=== PATIENT | male | born 1970 | race Caucasian/White ===

== ENCOUNTER 2017-02-28 17:57 | Emergency (ER) | payer SELFPAY ==
[~2017-02-28] VITALS: Ht 162.6 cm; Wt 70.0 kg
[2017-02-28 18:07] VITALS: Ht 162.6 cm; Wt 70.0 kg
--- NOTE | 2017-02-28 18:49 | ERD ---
ER Documentation Chief Complaint Date/Time DATE: 02/28/17 TIME: 18:46 Chief Complaint "ate someting 30 minutes ago, face is swollen" no airway comprimise HPI 46-year-old male presents in emergency department for complaints of itching and facial swelling today after eating Jell-O. Patient was at a [employer], ate Jell-O, started to have itching afterwards. Patient does not have any lip swelling, tongue swelling or stridor. Patient does not have any shortness breath or wheezing. Patient did not take any medications to help with symptoms. ROS All systems reviewed and are negative except as per history of present illness. Medications Home Meds Reported Medications [none] Unknown Strength No Conflict Check 02/28/17 Allergies Allergies: Coded Allergies: No Known Allergy (Unverified , 02/28/17) PMhx/Soc Medical and Surgical Hx: pt denies Medical Hx, pt denies Surgical Hx History of Surgery: No Anesthesia Reaction: No Hx Neurological Disorder: No Hx Respiratory Disorders: No Hx Cardiac Disorders: No Hx Psychiatric Problems: No Hx Miscellaneous Medical Probl: No Hx Alcohol Use: No Hx Substance Use: No Hx Tobacco Use: No FmHx Family History: No coronary disease, No diabetes, No other Physical Exam Vitals Vital Signs Date Time Temp Pulse Resp B/P Pulse Ox O2 Delivery O2 Flow Rate FiO2 02/28/17 18:07 98.6 66 18 154/85 99 Physical Exam GENERAL: The patient is well developed and appropriate for usual state of health, in no apparent distress. CHEST: Clear to auscultation bilaterally. There are no rales, wheezes or rhonchi. No stridor. HEART: Regular rate and rhythm. No murmurs, clicks, rubs or gallops. No S3 or S4. ABDOMEN: Soft, nontender and nondistended. Good bowel sounds. No rebound or guarding. No gross peritonitis. No gross organomegaly or masses. No Burroughs sign or McBurney point tenderness. BACK: No midline or flank tenderness. EXTREMITIES: Equal pulses bilaterally. There is no peripheral clubbing, cyanosis or edema. No focal swelling or erythema. Full range of motion. Grossly neurovascularly intact. NEURO: Alert and oriented. Cranial nerves 2-12 intact. Motor strength in all 4 extremities with 5/5 strength. Sensation grossly intact. Normal speech and gait. SKIN: Maculopapular rash noted in the facial area. No lip swelling or tonsillar swelling noted. There is no apparent ecchymosis or petechia. The skin is warm and dry. HEMATOLOGIC AND LYMPHATIC: There is no evidence of excessive bruising or lymphedema. No gross cervical, axillary, or inguinal lymphadenopathy. Results 24 hrs Current Medications Medications (Trade) Dose Ordered Sig/Yanelis Route PRN Reason Start Time Stop Time Status Last Admin Dose Admin Diphenhydramine HCl (Benadryl) 50 mg ONCE ONCE IM 02/28/17 19:00 02/28/17 19:01 Benadryl was given here in emergency department, after treatment, verbalized feeling very much better. Procedures/MDM Medical decision making: Patient's symptoms most like it consistent with allergic reaction. Low suspicion for any anaphylactic shock. No angioedema. No oral airway obstruction noted. Patient was given a procedure for Benadryl, prednisone, is advised to follow-up with primary care doctor in 2-3 days for reevaluation of symptoms. Patient is advised to return to emergency department for any worsening symptoms. Disposition: Home. Stable. Departure Diagnosis: Primary Impression: Allergic reaction Encounter type: initial encounter Qualified Code: T78.40XA - Allergic reaction, initial encounter Condition: Stable Patient Instructions: First Aid: Allergic Reactions MELLISA CHAIREZ NP February 28, 2017 18:49
[2017-02-28] MEDS ORDERED: PRED50TA PO (18:50)
[2017-02-28] MEDS ORDERED: BEN50 PO (18:50)
[2017-02-28] MEDS ORDERED: DIPHENHYDRAMINE 50 MG INJ IM ONE (19:00)
== END 2017-02-28 19:11 | disposition home or self-care (01) ==
LOC: FTE 17:57
DX: T78.1XXA Other adverse food reactions, not elsewhere classified, initial encounter (principal); R21 Rash and other nonspecific skin eruption
CPT/HCPCS: 96372; 99284; J1200